=== PATIENT | female | born 1965 | race Caucasian/White ===

== ENCOUNTER → 2018-01-30 | Day surgery (SDC) | payer OTHER ==
[~2018-01-30] MED LIST: COZAAR25 MG PO; DOXYCYCLINE HY100 MG PO; NAPROXEN500 MG PO; SYNTHROID88 MCG PO
== END | disposition home or self-care (01) ==
LOC: ADM 01-27 13:30 → CIR.AMB 08:31
DX: D25.0 Submucous leiomyoma of uterus (principal); N93.8 Other specified abnormal uterine and vaginal bleeding